=== PATIENT | female | born 1950 | race Caucasian/White ===

== ENCOUNTER 2017-09-11 03:49 | Observation (INO) | payer OTHER ==
[~2017-09-11] VITALS: Ht 158.8 cm; Wt 79.4 kg
[2017-09-11] VITALS (12 sets, daily range): BP systolic 121–194; BP diastolic 59–97; PULSE 75–102; RESP 16–20; TEMP 96.6–97.7; O2SAT 95–100
[~2017-09-11 03:49] MED LIST: ATOR20TA PO; BACL10TA PO; HYDR-3533 PO; LISI-363 PO; METF500 PO; OMEP20TA PO; PHEN12.5 PO
[2017-09-11] MEDS ORDERED: ATOR10TA15 PO (04:11)
[2017-09-11] MEDS ORDERED: METF500T4 PO (04:11)
[2017-09-11] MEDS ORDERED: LISI-519 PO (04:11)
[2017-09-11] MEDS ORDERED: OMEP40CA2 PO (04:11)
[2017-09-11] MEDS ORDERED: PRED1SUS RIGHT EYE (04:11)
--- NOTE | 2017-09-11 04:11 | PD ---
HPI Chief Complaint: Chest Pain Time Seen by Provider: 04:05 Travel History International Travel<30 days: No Contact w/Intl Traveler<30days: No Traveled to known affect area: No History of Present Illness HPI The patient is a 67-year-old female who states she has no history of heart disease who complains of a fullness in her lower sternum beginning at 2:00 this morning. She took 2, 325 mg aspirin but the pain was constant. She does have nausea with some possible radiation of pain to the left shoulder. She denies any shortness of breath or diaphoresis. She denies any syncopal or near syncopal spells. She does have a history of borderline diabetes, hypertension and elevated cholesterol. She does not smoke. Her last stress test was about 10 years ago. PFSH Past Medical History Arthritis: Yes Heart Rhythm Problems: No Cancer: Yes (Breast) Cardiac Catheterization: No Cardiovascular Problems: Yes High Cholesterol: Yes Congestive Heart Failure: No Diabetes: Yes Diminished Hearing: No Gastrointestinal Disorders: Yes (DELCID'S ESOPHAGUS) GERD: Yes Genitourinary: Yes (PROLAPSED BLADDER) Hypertension: Yes Radiation Therapy: Yes (left breast) Ulcer: Yes ?: Not Menopausal: Yes Tubal Ligation: Yes Past Surgical History Appendectomy: Yes Coronary Artery Bypass Graft: No Genitourinary Surgery: Yes (PESSARY ) Gynecologic Surgery: Yes (Bladder sling for bladder/pelvic prolapse) Hysterectomy: Yes Tonsillectomy: Yes Social History Alcohol Use: Yes (1-2 beers daily) Tobacco Use: No Substance Use: No Allergies-Medications (Allergen,Severity, Reaction): Coded Allergies: prednisone (Verified Allergy, Intermediate, RASH, 09/11/17) Reported Meds & Prescriptions Reported Meds & Active Scripts Active Reported Pred Forte Opth 1% (Prednisolone Acetate Opth 1%) 1% Susp 1 Drop RIGHT EYE QID Lisinopril 5 Mg Tab 5 Mg PO DAILY Metformin ER (Metformin HCl) 500 Mg Shon 500 Mg PO DAILY With evening meal Omeprazole 40 Mg Cap 40 Mg PO DAILY Atorvastatin (Atorvastatin Calcium) 10 Mg Tab 10 Mg PO HS Review of Systems Except as stated in HPI: all other systems reviewed are Neg Physical Exam Narrative GENERAL: The patient is alert, oriented 3 and slight apparent distress with her chest discomfort. Her vital signs show temperature 97.2 with pulse of 97 and blood pressure 194/97 but otherwise normal. SKIN: Focused skin assessment warm/dry. HEAD: Atraumatic. Normocephalic. EYES: Pupils equal and round. No scleral icterus. No injection or drainage. ENT: No nasal bleeding or discharge. Mucous membranes pink and moist. NECK: Trachea midline. No JVD. CARDIOVASCULAR: Regular rate and rhythm. No murmur appreciated. I cannot reproduce the patient's pain by pressing on the lower sternal area where the patient perceives her pain. RESPIRATORY: No accessory muscle use. Clear to auscultation. Breath sounds equal bilaterally. GASTROINTESTINAL: Abdomen soft, non-tender, nondistended. Hepatic and splenic margins not palpable. MUSCULOSKELETAL: No obvious deformities. No clubbing. No cyanosis. No edema. NEUROLOGICAL: Awake and alert. No obvious cranial nerve deficits. Motor grossly within normal limits. Normal speech. PSYCHIATRIC: Appropriate mood and affect; insight and judgment normal. Data Data Last Documented VS Vital Signs Date Time Temp Pulse Resp B/P (MAP) Pulse Ox O2 Delivery O2 Flow Rate FiO2 09/11/17 04:48 98 18 131/75 (93) 96 Nasal Cannula 1.00 09/11/17 03:55 97.2 Orders Orders Electrocardiogram (09/11/17 04:05) Complete Blood Count With Diff (09/11/17 04:05) Comprehensive Metabolic Panel (09/11/17 04:05) Magnesium (Mg) (09/11/17 04:05) Prothrombin Time / Inr (Pt) (09/11/17 04:05) Act Partial Throm Time (Ptt) (09/11/17 04:05) Troponin I (09/11/17 04:05) Chest, Single Ap (09/11/17 04:05) Ecg Monitoring (09/11/17 04:05) Bilateral Bp Monitoring (09/11/17 04:05) Iv Access Insert/Monitor (09/11/17 04:05) Oximetry (09/11/17 04:05) Oxygen Administration (09/11/17 04:05) Sodium Chloride 0.9% Flush (Ns Flush) (09/11/17 04:15) Nitroglycerin Sl (Nitrostat Sl) (09/11/17 04:15) Labs Laboratory Tests Test 09/11/17 04:00 White Blood Count 9.6 TH/MM3 Red Blood Count 4.09 MIL/MM3 Hemoglobin 11.1 GM/DL Hematocrit 33.0 % Mean Corpuscular Volume 80.6 FL Mean Corpuscular Hemoglobin 27.1 PG Mean Corpuscular Hemoglobin Concent 33.6 % Red Cell Distribution Width 13.4 % Platelet Count 310 TH/MM3 Mean Platelet Volume 8.2 FL Neutrophils (%) (Auto) 62.4 % Lymphocytes (%) (Auto) 23.5 % Monocytes (%) (Auto) 7.9 % Eosinophils (%) (Auto) 3.8 % Basophils (%) (Auto) 2.4 % Neutrophils # (Auto) 5.9 TH/MM3 Lymphocytes # (Auto) 2.3 TH/MM3 Monocytes # (Auto) 0.8 TH/MM3 Eosinophils # (Auto) 0.4 TH/MM3 Basophils # (Auto) 0.2 TH/MM3 CBC Comment DIFF FINAL Differential Comment Prothrombin Time 10.4 SEC Prothromb Time International Ratio 0.9 RATIO Activated Partial Thromboplast Time 26.9 SEC Blood Urea Nitrogen 11 MG/DL Creatinine 0.68 MG/DL Random Glucose 146 MG/DL Total Protein 7.2 GM/DL Albumin 3.7 GM/DL Calcium Level 8.8 MG/DL Magnesium Level 2.4 MG/DL Alkaline Phosphatase 84 U/L Aspartate Amino Transf (AST/SGOT) 10 U/L Alanine Aminotransferase (ALT/SGPT) 26 U/L Total Bilirubin 0.2 MG/DL Sodium Level 137 MEQ/L Potassium Level 4.1 MEQ/L Chloride Level 103 MEQ/L Carbon Dioxide Level 24.4 MEQ/L Anion Gap 10 MEQ/L Estimat Glomerular Filtration Rate 86 ML/MIN Troponin I LESS THAN 0.02 NG/ML MDM Medical Decision Making Medical Screen Exam Complete: Yes Emergency Medical Condition: Yes Medical Record Reviewed: Yes Interpretation(s) The EKG shows sinus tachycardia with a rate of [address] elevation or depression. The CBC is normal except for hemoglobin 11.1 and hematocrit of 33.0. The complete metabolic profile shows a GFR of 86, glucose of 146 but is otherwise normal. The troponin I is normal. The coagulation profile is normal. The chest x-ray shows cardiomegaly but no acute pulmonary pathology. Differential Diagnosis Acute coronary syndrome, esophageal pain, gastrointestinal pain, musculoskeletal pain, pleuritic pain, chest pain etiology undetermined, Narrative Course The patient has chest pain etiology undetermined. She will get a stress test today, she is way overdue to get one. Diagnosis Primary Impression: chest pain Admitting Information Admitting Physician Requests: Observation Romeo Grier MD Sep 11, 2017 04:11
[2017-09-11 04:15] LABS: AUTOMATED NEUTROPHIL # 5.9 TH/MM3 (1.8-7.7); BASOPHIL # 0.2 TH/MM3 (0-0.2); BASOPHIL % 2.4 % (0.0-2.0); EOSINOPHIL # 0.4 TH/MM3 (0-0.4); EOSINOPHIL % 3.8 % (0.0-4.0); HEMO FLAGS DIFF FINAL; LYMPH % 23.5 % (9.0-44.0); LYMPHOCYTE # 2.3 TH/MM3 (1.0-4.8); MEAN CELL VOLUME 80.6 FL (80.0-100.0); MEAN CORPUSCULAR HEMOGLOBIN 27.1 PG (27.0-34.0); MEAN CORPUSCULAR HGB CONC 33.6 % (32.0-36.0); MONO % 7.9 % (0.0-8.0); NEUT % 62.4 % (16.0-70.0); PLATELET COUNT 310 TH/MM3 (150-450); RED BLOOD COUNT 4.09 MIL/MM3 (4.00-5.30); RED CELL DISTRIBUTION WIDTH 13.4 % (11.6-17.2); WHITE BLOOD COUNT 9.6 TH/MM3 (4.0-11.0)
[2017-09-11] MEDS ORDERED: SODIUM CHLORIDE 0.9% FLUSH 10 ML FLUSH IVF PRN (04:15)
[2017-09-11] MEDS: NITROGLYCERIN 0.4 MG SL 25 TABS/BTL SL SCH ×3 (04:20→04:35)
[2017-09-11 04:33] LABS: CHLORIDE 103 MEQ/L (98-107); POTASSIUM 4.1 MEQ/L (3.5-5.1); SODIUM (NA) 137 MEQ/L (136-145)
[2017-09-11 04:36] LABS: ANION GAP 10 MEQ/L (5-15); BICARBONATE 24.4 MEQ/L (21.0-32.0); MAGNESIUM 2.4 MG/DL (1.5-2.5)
[2017-09-11 04:37] LABS: BLOOD UREA NITROGEN 11 MG/DL (7-18)
[2017-09-11 04:39] LABS: ALT (GPT) 26 U/L (10-53); APTT (PATIENT) 26.9 SEC (24.3-30.1); AST (GOT) 10 U/L (15-37); GLOMERULAR FILTRATION RATE 86 ML/MIN (>89); INTERNATIONAL NORMALIZED RATIO 0.9 RATIO; PROTHROMBIN TIME - PATIENT 10.4 SEC (9.8-11.6)
[2017-09-11 04:41] LABS: TOTAL BILIRUBIN ADULT 0.2 MG/DL (0.2-1.0)
[2017-09-11 04:42] LABS: ALKALINE PHOSPHATASE 84 U/L (45-117)
--- NOTE | 2017-09-11 04:42 | RADRPT ---
EXAM DATE/TIME: 09/11/2017 04:18 [facility] COMPARISON: CHEST SINGLE AP, February 20, 2015, 20:34. INDICATIONS : Chest pain. MEDICAL HISTORY : Diabetes mellitus type II. Hypertension Renal disease. SURGICAL HISTORY : Left breast lumpectomy. ENCOUNTER: Initial ACUITY: 1 day PAIN SCORE: 5/10 LOCATION: Bilateral chest FINDINGS: The cardiac silhouette is enlarged in transverse diameter. The lungs are free of acute parenchymal op acity. No effusions are identified. Osseous structures are intact. CONCLUSION: Cardiomegaly. No acute cardiopulmonary disease. Gerber Ruvalcaba MD on September 11, 2017 at 4:41 Board Certified Radiologist. This report was verified electronically.
[2017-09-11] MEDS ORDERED: REGADENOSON INJ 0.4 MG/5 ML SYR IV ONE (05:13)
[2017-09-11] MEDS ORDERED: ONDANSETRON HCL 4 MG/2 ML VIAL IV PUSH ONE (06:15)
[2017-09-11] MEDS ORDERED: SODIUM CHLORIDE 0.9% FLUSH 10 ML FLUSH IV FLUSH PRN (06:15)
[2017-09-11] MEDS ORDERED: HYDROmorphone HCL PF 2 MG/ML VIAL IVS ONE (06:15)
[2017-09-11 08:27] LABS: CREATINE KINASE 47 U/L (26-192)
[2017-09-11] MEDS ORDERED: SODIUM CHLORIDE 0.9% FLUSH 10 ML FLUSH IV FLUSH SCH (09:00)
--- NOTE | 2017-09-11 09:29 | HHI.HP ---
[facility] Admission Diagnosis chest pain Diagnoses: Chief Complaint: chest pain Travel History International Travel<30 Days: No Contact w/Intl Traveler <30 Da: No Traveled to Known Affected Are: No History of Present Illness 67-year-old white female being admitted for chest pain. Patient was in her usual state of health until earlier this morning when she woke up and found herself to have squeezing 5 out of 10 chest pain that radiated to her left shoulder and back. The pain did not subside and remained constant. She tried to get up and walk around wash dishes with no relief. She had also taken to 325 mg aspirin pills to no avail as well. Reports having some nausea but no vomiting with this. Denies any pleuritic component to the chest pain. Denies any shortness of breath lightheadedness or diaphoresis. States that she does have acid reflux and history of Mckeon's esophagus. Reports having endoscopy done 2 years ago and was told she did not have any obvious signs of Mckeon's esophagus on gross visualization as best as she can remember. She thinks that since he started taking her omeprazole 40 mg at night regularly a few months ago that her sleep has been better. Review of Systems Except as stated in HPI: all other systems reviewed are Neg Past Family Social History Past Medical History Mckeon's esophagus, acid reflux, hypertension, hypercholesterolemia, diabetes, nonspecified arthritis Past Surgical History Tubal ligation, tonsillectomy, uterine prolapse repair, endoscopy, breast lumpectomy Allergies: Coded Allergies: prednisone (Verified Allergy, Intermediate, RASH, 09/11/17) Family History Heart attacks in sister, diabetes in father Social History Ex-smoker (quit in the 80s), denies any illicit drug use now or in the past, drinks up to 2 beers of alcohol daily Physical Exam Vital Signs Vital Signs Date Time Temp Pulse Resp B/P (MAP) Pulse Ox O2 Delivery O2 Flow Rate FiO2 09/11/17 08:00 97.7 77 16 121/69 (86) 99 09/11/17 06:09 16 96 1.00 09/11/17 06:00 96.6 79 20 121/59 (79) 100 09/11/17 05:50 75 16 124/65 (84) 99 Nasal Cannula 1.00 09/11/17 05:20 80 16 132/66 (88) 96 Nasal Cannula 1.00 09/11/17 04:48 98 18 131/75 (93) 96 Nasal Cannula 1.00 09/11/17 04:45 16 09/11/17 04:43 102 18 129/75 (93) 95 Nasal Cannula 1.00 09/11/17 04:34 95 Nasal Cannula 1.00 09/11/17 04:32 101 18 135/73 (93) 95 Nasal Cannula 1.00 09/11/17 04:27 101 18 147/80 (102) 96 Nasal Cannula 1.00 09/11/17 04:16 93 18 99 Room Air 09/11/17 04:16 92 18 154/79 (104) 99 Nasal Cannula 1.00 09/11/17 04:12 102 18 97 Room Air 09/11/17 03:55 97.2 97 18 194/97 (129) 96 Physical Exam VS: Reviewed, afebrile GENERAL: Lying in bed, no acute distress SKIN: Warm and dry. EYES: No scleral icterus. No injection or drainage. ENT: No nasal bleeding or discharge. Mucous membranes pink and moist. CARDIOVASCULAR: Regular rate and rhythm. no murmurs RESPIRATORY: No accessory muscle use. Clear to auscultation. Breath sounds equal bilaterally. GASTROINTESTINAL: Abdomen soft, non-tender, nondistended. Hepatic and splenic margins not palpable. MUSCULOSKELETAL: Extremities without clubbing, cyanosis, or edema. No obvious deformities. grossly intact ROM with 5/5 strength in upper and lower extremities proximally. I am unable to reproduce her chest pain by sternal rub or by palpating deeply on her left upper back. NEUROLOGICAL: Awake and alert. No obvious cranial nerve deficits. No facial droop nor slurred speech noted. PSYCHIATRIC: Appropriate mood and affect; insight and judgment normal. Laboratory Laboratory Tests Test 09/11/17 04:00 09/11/17 07:30 White Blood Count 9.6 Red Blood Count 4.09 Hemoglobin 11.1 Hematocrit 33.0 Mean Corpuscular Volume 80.6 Mean Corpuscular Hemoglobin 27.1 Mean Corpuscular Hemoglobin Concent 33.6 Red Cell Distribution Width 13.4 Platelet Count 310 Mean Platelet Volume 8.2 Neutrophils (%) (Auto) 62.4 Lymphocytes (%) (Auto) 23.5 Monocytes (%) (Auto) 7.9 Eosinophils (%) (Auto) 3.8 Basophils (%) (Auto) 2.4 Neutrophils # (Auto) 5.9 Lymphocytes # (Auto) 2.3 Monocytes # (Auto) 0.8 Eosinophils # (Auto) 0.4 Basophils # (Auto) 0.2 CBC Comment DIFF FINAL Differential Comment Prothrombin Time 10.4 Prothromb Time International Ratio 0.9 Activated Partial Thromboplast Time 26.9 Blood Urea Nitrogen 11 Creatinine 0.68 Random Glucose 146 Total Protein 7.2 Albumin 3.7 Calcium Level 8.8 Magnesium Level 2.4 Alkaline Phosphatase 84 Aspartate Amino Transf (AST/SGOT) 10 Alanine Aminotransferase (ALT/SGPT) 26 Total Bilirubin 0.2 Sodium Level 137 Potassium Level 4.1 Chloride Level 103 Carbon Dioxide Level 24.4 Anion Gap 10 Estimat Glomerular Filtration Rate 86 Troponin I LESS THAN 0.02 LESS THAN 0.02 Total Creatine Kinase 47 Result Diagram: 09/11/1739909/11/17399 Caprini VTE Risk Assessment Caprini VTE Risk Assessment: Mod/High Risk (score >= 2) Caprini Risk Assessment Model Point Value = 1 Point Value = 2 Point Value = 3 Point Value = 5 Age 41-60 Minor surgery BMI > 25 kg/m2 Swollen legs Varicose veins or History of unexplained or recurrent spontaneous Oral contraceptives or hormone replacement Sepsis (< 1 month) Serious lung disease, including pneumonia (< 1 month) Abnormal pulmonary function Acute myocardial infarction Congestive heart failure (< 1 month) History of inflammatory bowel disease Medical patient at bed rest Age 61-74 Arthroscopic surgery Major open surgery (> 45 min) Laparoscopic surgery (> 45 min) Malignancy Confined to bed (> 72 hours) Immobilizing plaster cast Central venous access Age >= 75 History of VTE Family history of VTE Factor V Leiden Prothrombin [id number] Lupus anticoagulant Anticardiolipin antibodies Elevated serum homocysteine Heparin-induced thrombocytopenia Other congenital or acquired thrombophilia Stroke (< 1 month) Elective arthroplasty Hip, pelvis, or leg fracture Acute spinal cord injury (< 1 month) Prophylaxis Regimen Total Risk Factor Score Risk Level Prophylaxis Regimen 0-1 Low Early ambulation 2 Moderate Order ONE of the following: *Sequential Compression Device (SCD) *Heparin 5000 units SQ BID 3-4 Higher Order ONE of the following medications: *Heparin 5000 units SQ TID *Enoxaparin/Lovenox 40 mg SQ daily (WT < 150 kg, CrCl > 30 mL/min) *Enoxaparin/Lovenox 30 mg SQ daily (WT < 150 kg, CrCl > 10-29 mL/min) *Enoxaparin/Lovenox 30 mg SQ BID (WT < 150 kg, CrCl > 30 mL/min) AND/OR *Sequential Compression Device (SCD) 5 or more Highest Order ONE of the following medications: *Heparin 5000 units SQ TID (Preferred with Epidurals) *Enoxaparin/Lovenox 40 mg SQ daily (WT < 150 kg, CrCl > 30 mL/min) *Enoxaparin/Lovenox 30 mg SQ daily (WT < 150 kg, CrCl > 10-29 mL/min) *Enoxaparin/Lovenox 30 mg SQ BID (WT < 150 kg, CrCl > 30 mL/min) AND *Sequential Compression Device (SCD) Assessment and Plan Assessment and Plan Chest pain - Possible acute coronary syndrome. We'll trend cardiac enzymes. EKG independently reviewed by me shows no new acute changes concerning for myocardial infarction including any substantial ST elevation or T-wave inversion. Ordering Lexiscan. - Chest x-ray and EKG personally reviewed by me is also clear of any acute findings. - Wells score is 1 at most with hx of malignancy in the past - d-dimer not indicated - telemetry HTN - continue lisinopril HYL - continue lipitor DM - hold metformin, can start SS if pt needs longer stay than today CKD - GFR 86, no further intervention at this time Lexiscan results were negative. Pt was started on PPI. Pt was discharged in stable condition and counseled to f/u with PCP. Lyle Hazel MD Sep 11, 2017 09:29
[2017-09-11] MEDS ORDERED: PANTOPRAZOLE SOD 40 MG DELAYED RELEASE TAB PO SCH (10:00)
[2017-09-11] MEDS ORDERED: LISINOPRIL 5 MG TAB PO SCH (10:00)
[2017-09-11 10:52] LABS: CREATINE KINASE 49 U/L (26-192)
--- NOTE | 2017-09-11 11:24 | EKG ---
Date Performed: 09/11/2017 Time Performed: 07:34:41 PTAGE: 67 years EKG: Sinus rhythm PROBABLE INFERIOR MYOCARDIAL INFARCTION ABNORMAL ECG PREVIOUS TRACING : 09/11/2017 03.58 Since previous tracing, no significant change noted DOCTOR: Ric Trujillo Interpretating Date/Time 09/11/2017 11:23:00
--- NOTE | 2017-09-11 11:26 | EKG ---
Date Performed: 09/11/2017 Time Performed: 03:58:25 PTAGE: 67 years EKG: SINUS TACHYCARDIA Poor R wave progression INFERIOR MYOCARDIAL INFARCTION ABNORMAL ECG PREVIOUS TRACING : 02/21/2015 03.44 Since previous tracing, no significant change noted DOCTOR: Ric Trujillo Interpretating Date/Time 09/11/2017 11:26:00
--- NOTE | 2017-09-11 11:59 | RADRPT ---
EXAM DATE/TIME: 09/11/2017 10:29 [facility] COMPARISON: No previous studies available for comparison. INDICATIONS : Substernal chest pain radiating to the left shoulder. Angina. DOSE: 27 mCi Tc99m Myoview at stress. 8.8 mCi Tc99m Myoview at rest. 0.4 mg Lexiscan STRESS SYMPTOMS: Chest pressure. EJECTION FRACTION: > 70% MEDICAL HISTORY : Hypercholesterolemia. Gastroesophageal reflux disease. Diabetes mellitus type 2. Hypertension. SURGICAL HISTORY : Tubal ligation. Tonsillectomy. Hysterectomy. ENCOUNTER: Initial ACUITY: 1 day PAIN SCALE: 5/10 LOCATION: Substernal chest TECHNIQUE: The patient underwent pharmacologic stress with infusion of prescribed dose. Continuous ECG tracing was monitored during stress. Gated SPECT imaging was performed after stress and conventional SPECT i maging was performed at rest. The examination was performed on a SPECT/CT scanner, both attenuation and non-corrected datasets were reviewed. FINDINGS: DISTRIBUTION: The maximum perfused segment at stress is in the inferior septal wall. PERFUSION STUDY: The pattern of perfusion at stress is within normal limits. GATED STUDY: There is intact wall motion and thickening without hypokinetic or dyskinetic segments. CONCLUSION: Unremarkable myocardial perfusion examination. RISK CATEGORY: low Patrice Wayne MD on September 11, 2017 at 11:57 Board Certified Radiologist. This report was verified electronically.
[2017-09-11] MEDS ORDERED: prednisoLONE ACETATE 1% OPHT SUSP 5 ML BTL RIGHT EYE SCH (13:00)
[2017-09-11] MEDS ORDERED: ALUMINUM/MAGNESIUM/SIMETH 30 ML CUP PO ONE (14:00)
--- NOTE | 2017-09-11 14:44 | HHI.DCPOC ---
Discharge Care Plan Diagnosis: (1) Acid reflux Goals to Promote Your Health * To prevent worsening of your condition and complications * To maintain your health at the optimal level Directions to Meet Your Goals Take your medications as prescribed Follow your dietary instruction Follow activity as directed Keep your appointments as scheduled Take your immunizations and boosters as scheduled If your symptoms worsen call your PCP, if no PCP go to Urgent Care Center or Emergency Room Smoking is Dangerous to Your Health. Avoid second hand smoke Call the 24-hour hour crisis hotline for domestic abuse at Lyle Hazel MD Sep 11, 2017 14:44
[2017-09-11] MEDS ORDERED: ASPI81TA11 PO (14:45)
--- NOTE | 2017-09-11 17:45 | TR ---
Date Performed: 09/11/2017 Time Performed: 11:01:37 DOCTOR: Ric Trujillo DRUG LIST: CLINICAL HISTORY: REASON FOR TEST: Chest pain REASON FOR ENDING: OBSERVATION: CONCLUSION: \sandy COMMENTS:
--- NOTE | 2017-09-11 17:57 | EKG ---
Date Performed: 09/11/2017 Time Performed: 09:56:12 PTAGE: 67 years EKG: Sinus rhythm PROBABLE INFERIOR MYOCARDIAL INFARCTION ABNORMAL ECG PREVIOUS TRACING : 09/11/2017 07.34 Since previous tracing, no significant change noted DOCTOR: Ric Trujillo Interpretating Date/Time 09/11/2017 17:55:34
[2017-09-11] MEDS ORDERED: ATORVASTATIN 10 MG TAB PO SCH (21:00)
== END 2017-09-11 15:25 | disposition home or self-care (01) ==
LOC: PHED 03:49 → PHEDA 05:12 → PH3A 06:01
PROVIDERS: ADMIT Hospitalist; ATTEND Hospitalist
DX: R07.9 Chest pain, unspecified (principal); R11.0 Nausea; E78.00 Pure hypercholesterolemia, unspecified; R73.03 Prediabetes; M19.90 Unspecified osteoarthritis, unspecified site; K22.70 Barrett's esophagus without dysplasia; K21.9 Gastro-esophageal reflux disease without esophagitis; Z85.3 Personal history of malignant neoplasm of breast; Z79.899 Other long term (current) drug therapy; Z79.84 Long term (current) use of oral hypoglycemic drugs; N18.9 Chronic kidney disease, unspecified; I12.9 Hypertensive chronic kidney disease with stage 1 through stage 4 chronic kidney disease, or unspecified chronic kidney disease
CPT/HCPCS: 71010; 78452; 80053; 82550; 83735; 84484; 85025; 85610; 85730; 93005; 93017; 99285; A9502; G0378; J2785